=== PATIENT | female | born 1965 | race Caucasian/White ===

== ENCOUNTER 2022-08-27 10:54 | Outpatient (REF) | payer OTHER, SELFPAY | END 2022-08-27 10:55 | disposition home or self-care (01) | LOC: HO.BBR 10:54 | PROVIDERS: PCP Student in an Organized Health Care Education/Training Program; Visit Provider Internal Medicine Medical Oncology | DX: D75.1 Secondary polycythemia (principal) | CPT/HCPCS: 85018; 99195 ==

== ENCOUNTER 2022-12-27 15:05 | Outpatient (REF) | payer OTHER, SELFPAY | END 2022-12-27 15:06 | disposition home or self-care (01) | LOC: HO.BBR 15:05 | PROVIDERS: PCP Student in an Organized Health Care Education/Training Program; Visit Provider Internal Medicine Medical Oncology | DX: D75.1 Secondary polycythemia (principal) | CPT/HCPCS: 85018; 99195 ==

== ENCOUNTER 2023-05-02 14:58 | Outpatient (REF) | payer OTHER, SELFPAY | END 2023-05-02 14:59 | disposition home or self-care (01) | LOC: HO.BBR 14:58 | PROVIDERS: PCP Student in an Organized Health Care Education/Training Program; Visit Provider Internal Medicine Medical Oncology | DX: Z13.89 Encounter for screening for other disorder (principal) | CPT/HCPCS: 85018 ==